=== PATIENT | female | born 1990 | race Caucasian/White ===

== ENCOUNTER → 2017-02-09 | Outpatient (CLI) | payer OTHER ==
[2017-02-09 12:03] LABS: URINE APPEARANCE CLEAR (CLEAR); URINE BILIRUBIN NEG (NEG); URINE COLOR YELLOW; URINE NITRITE NEG (NEG); URINE SPECIFIC GRAVITY 1.016 (1.000-1.030); UROBILINOGEN NEG (NEG)
[2017-02-09 12:04] LABS: MANUAL MICROSCOPIC REQUIRED? NO; REVIEW REQ? NO
== END | disposition home or self-care (01) ==
LOC: C.LABSPEC 11:11
PROVIDERS: ATTEND Obstetrics & Gynecology
DX: Z34.01 Encounter for supervision of normal first pregnancy, first trimester (principal)

== ENCOUNTER → 2017-02-14 | Outpatient (CLI) | payer OTHER ==
[2017-02-14 16:48] LABS: BASO % 0.2 %; BASO ABS # 0.03 K/uL (0-0.2); COMPLETE YES; EOS % 1.3 %; HEMATOCRIT 37.7 % (37-47); IG% 0.2 %; LYMPH % 12.9 %; LYMPH ABS # 1.65 K/uL (1.2-3.4); MEAN CELL VOLUME 85.9 fL (80-100); MEAN CORPUSCULAR HEMOGLOBIN 28.7 pg (25-34); MEAN CORPUSCULAR HGB CONC 33.4 g/dl (32-36); MEAN PLATELET VOLUME 10.8 fL (7.4-10.4); MONO % 6.6 %; NEUT % 78.8 %; PLATELET COUNT 206 K/uL (130-400); RED BLOOD COUNT 4.39 M/uL (4.2-5.4)
[2017-02-16 13:55] LABS: CHLAMYDIA TRACH RNA*** NOT DETECTED (NOT DETECTED); GC (NEIS GONORRHOEAE)RNA** NOT DETECTED (NOT DETECTED)
== END | disposition home or self-care (01) ==
LOC: C.LAB1850 15:43
PROVIDERS: ATTEND Obstetrics & Gynecology
DX: Z34.01 Encounter for supervision of normal first pregnancy, first trimester (principal); E83.31 Familial hypophosphatemia

== ENCOUNTER → 2017-02-14 | Outpatient (CLI) | payer OTHER | END | disposition home or self-care (01) | LOC: C.PAPS 09:54 | PROVIDERS: ATTEND Obstetrics & Gynecology | DX: Z12.4 Encounter for screening for malignant neoplasm of cervix (principal) ==

== ENCOUNTER → 2017-02-23 | Outpatient (CLI) | payer OTHER ==
[2017-02-23 14:37] LABS: ALT/SGPT 27 U/L (12-78); BLOOD UREA NITROGEN 7 mg/dl (7-18); BUN/CREATININE RATIO 14.3 (10-20); CALCIUM 9.7 mg/dl (8.5-10.1); CARBON DIOXIDE 24 mmol/L (21-32); CHLORIDE 105 mmol/L (98-107); GLUCOSE 61 mg/dl (70-99); SODIUM 136 mmol/L (136-145)
[2017-02-23 14:40] LABS: ALB/GLOB RATIO 1.1 (0.9-2); ALKALINE PHOSPHATASE 80 U/L (45-117); AST/SGOT 17 U/L (15-37); PHOSPHORUS 1.8 mg/dl (2.5-4.9)
[2017-02-23 15:05] LABS: CREATININE RANDOM URINE < 13.0 mg/dl
[2017-02-26 16:36] LABS: IONIZED CALCIUM** TC 19950E 5.73 MG/DL (4.8-5.6)
== END | disposition home or self-care (01) ==
LOC: C.LAB1850 13:03
PROVIDERS: ATTEND Pediatrics
DX: E21.2 Other hyperparathyroidism (principal)

== ENCOUNTER → 2017-03-29 | Outpatient (CLI) | payer OTHER ==
[~2017-03-29] MED LIST: CALC0.2510 PO; CHOL2000 PO; KPH250; PRENTAB26 PO
[2017-03-29 18:55] LABS: ALBUMIN 3.4 gm/dl (3.4-5.0); ALT/SGPT 22 U/L (12-78); AST/SGOT 18 U/L (15-37); BLOOD UREA NITROGEN 9 mg/dl (7-18); CALCIUM 9.2 mg/dl (8.5-10.1); CARBON DIOXIDE 23 mmol/L (21-32); GLUCOSE 63 mg/dl (70-99); PHOSPHORUS 1.8 mg/dl (2.5-4.9); SODIUM 135 mmol/L (136-145)
[2017-03-29 19:06] LABS: ALKALINE PHOSPHATASE 69 U/L (45-117); TOTAL PROTEIN 6.9 gm/dl (6.4-8.2)
== END | disposition home or self-care (01) ==
LOC: C.LAB1850 16:11
PROVIDERS: ATTEND Obstetrics & Gynecology
DX: E83.31 Familial hypophosphatemia (principal)

== ENCOUNTER → 2017-04-06 | Outpatient (CLI) | payer OTHER | END | disposition home or self-care (01) | LOC: C.LAB1850 14:07 | PROVIDERS: ATTEND Obstetrics & Gynecology | DX: Z34.02 Encounter for supervision of normal first pregnancy, second trimester (principal); Z3A.00 Weeks of gestation of pregnancy not specified ==

== ENCOUNTER → 2017-04-10 | Outpatient (CLI) | payer OTHER | END | disposition home or self-care (01) | LOC: C.LAB 13:08 | PROVIDERS: ATTEND Obstetrics & Gynecology | DX: E83.31 Familial hypophosphatemia (principal) ==

== ENCOUNTER → 2017-05-18 | Outpatient (CLI) | payer OTHER | END | disposition home or self-care (01) | LOC: C.LABSPEC 11:23 | PROVIDERS: ATTEND Obstetrics & Gynecology | DX: E83.31 Familial hypophosphatemia (principal) ==

== ENCOUNTER → 2017-07-01 | Outpatient (CLI) | payer OTHER | END | disposition home or self-care (01) | LOC: C.LABSPEC 14:18 | PROVIDERS: ATTEND Obstetrics & Gynecology | DX: Z34.03 Encounter for supervision of normal first pregnancy, third trimester (principal) ==

== ENCOUNTER → 2017-07-01 | Outpatient (CLI) | payer OTHER ==
[2017-07-01 14:42] LABS: HEMATOCRIT 38.3 % (37-47); HEMOGLOBIN 12.9 g/dL (12.0-16.0)
== END | disposition home or self-care (01) ==
LOC: C.LAB1850 12:27
PROVIDERS: ATTEND Obstetrics & Gynecology
DX: Z34.03 Encounter for supervision of normal first pregnancy, third trimester (principal)

== ENCOUNTER → 2017-10-25 | Outpatient (CLI) | payer OTHER ==
[2017-10-25 14:52] LABS: ALKALINE PHOSPHATASE 145 U/L (45-117); ALT/SGPT 42 U/L (12-78); AST/SGOT 28 U/L (15-37); BLOOD UREA NITROGEN 11 mg/dl (7-18); CALCIUM 9.3 mg/dl (8.5-10.1); CARBON DIOXIDE 25 mmol/L (21-32); CREATININE 0.79 mg/dl (0.60-1.20); GLUCOSE 74 mg/dl (70-99); PHOSPHORUS 2.3 mg/dl (2.5-4.9); POTASSIUM 4.5 mmol/L (3.5-5.1); SODIUM 139 mmol/L (136-145); TOTAL PROTEIN 7.5 gm/dl (6.4-8.2)
--- NOTE | 2017-11-07 14:28 | CODING QUERY NO DIAGNOSIS ---
: 1990 TREATMENT RENDERED WITHOUT A DIAGNOSIS To promote full compliance with coding requirements relating to patient care, physician participation is requested in all cases of maintenance mechanic uncertainty. Please assist us with providing a diagnosis/symptom for the test(s) below: A diagnosis/symptom was not documented on your Order. A valid diagnosis/symptom is required to bill all insurances. Please remember that we are unable to code a diagnosis of rule out, probable, possible, questionable, or suspected. Tests that require a diagnosis: DOS: 10/25/17 * COMPREHENSIVE METABOLIC PANEL DIAGNOSIS: * PHOSPHORUS DIAGNOSIS: * VITAMIN D, 25-HYDROXY DIAGNOSIS: * PARATHYROID HORMONE INTACT DIAGNOSIS: Provider Signature: Date: Thank you Angelita Arroyo Health Information Management Once completed, please kindly fax back to [phone] For questions please call [phone]
== END | disposition home or self-care (01) ==
LOC: C.LAB1850 13:29
PROVIDERS: ATTEND Pediatrics
DX: E83.31 Familial hypophosphatemia (principal); M90.80 Osteopathy in diseases classified elsewhere, unspecified site

== ENCOUNTER → 2017-10-28 | Outpatient (CLI) | payer OTHER ==
--- NOTE | 2017-11-11 07:53 | CODING QUERY MEDICAL NECESSITY ---
: 1990 SUPPORTING DIAGNOSIS NEEDED A supporting diagnosis is required for the test/procedure performed on this patient in order for us to be reimbursed by the patient's insurance. Please provide a supporting diagnosis for the following test/procedure listed below next to the test name along with your signature. *If there is no additional diagnosis for this patient that would support the following test/procedure please document that below next to the test/procedure. Test(s)/Procedure(s) that require a supporting diagnosis: DOS: 10/28/17 * UA DIAGNOSIS: Provider Signature: Date: Thank you Angelita Arroyo Health Information Management Once completed, please kindly fax back to [phone] For questions please call [phone]
== END | disposition home or self-care (01) ==
LOC: C.LABSPEC 13:09
PROVIDERS: ATTEND Pediatrics
DX: E83.31 Familial hypophosphatemia (principal); M90.80 Osteopathy in diseases classified elsewhere, unspecified site

== ENCOUNTER 2020-05-16 07:57 | Inpatient (IN) ==
--- NOTE | 2020-05-16 09:18 | History & Physical Report ---
Date of Service May 16, 2020 Assessment & Plan (1) Encounter for induction of labor: 29 y/o who presents for scheduled induction at 41wks for term . Routine . Hx of X-linked hypophosphatemia. O pos. Rubella immune. GBS neg. - vitals reviewed - category 1 tracing - 2 borderline elevated BPs (2 hours apart) this admission, normotensive on repeat. 144/82 and 142/80. No RONDON, visual changes, heartburn, nausea/vomiting, or RUQ pain. Will follow clinically. 05/15/20 outpatient urine dip neg for albumin. Platelet result noted. 159. - LR 125/hr - oxytocin 1+1 - patient potentially would like epidural later - patient requesting delayed cord clamping and cord blood genetic testing (home kit) (2) Encounter for screening for COVID-19: - 05/16/20 covid neg Admission and Anticipated Discharge Date Admission Date: May 16, 2020 History of Present Illness Primary Care Provider: Zee Drake MD Bianka Morrissey is a 29 y/o w/ currently at 41w0d as determined by LMP who is here for induction. Uncomplicated . + contractions; + movement; - fluid loss; + bloody show (x 3 days) Had regular appointments with OB. Labs: (09/27/19) Blood type: O pos Antibody screen: neg H.5 (today) Hct: 37.2 (today) WBC: 12.26 (today) Plt: 159 (today) Rubella: immune RPR: nonreactive Gonorrhea: not detected Chlamydia: not detected HIV: neg HbSAg: neg GBS: neg (04/21/20) GTT 1 hour 50 gram load: 93(02/14/20) Other screens: declines CF/SMA declines panorama Allergies Allergy/AdvReac Type Severity Reaction Status Date / Time pollen extracts Allergy Intermediate RESPIRATORY Verified 05/15/20 11:34 No Known Drug Allergies Allergy Verified 05/15/20 11:34 pine nut AdvReac Severe GI SYMPTOMS Verified 05/15/20 11:34 Home Medications Medication Instructions Recorded Confirmed Type prenat.vits,dillan,qta-clef-hyouv 1 tab PO DAILY 09/21/19 05/16/20 History cholecalciferol (vitamin D3) 2,000 units PO DAILY 04/11/20 05/16/20 History Patient History Medical History Hx of varicella Hypophosphatemia Tension headache Surgical History Hx of oral surgery Family History Father Hypertrophic cardiomyopathy Uncle Hypertrophic cardiomyopathy Grandfather Goiter Mother Hypophosphatemia Social History (Updated 09/21/19 @ 15:16 by Leela Mann) Smoking Status: Never smoker Do You Dip or Chew Tobacco: No; Hx Alcohol Use: No Hx Substance Use: No Preferred Language: German Communication Ability: Effective Oncology Consultant Required: No Beliefs That Will Affect Care: None marital status: marital status details: Buzz Morrissey (29) [phone] Current Living Situation: Spouse and Family Current Living Situation Comment: lives with and son, 2 cats, does not change litter current occupational status: employed current occupation: [employer] Other Information That Helps Us Care for You: No Feels Safe at Home: Yes Safety Concerns: Feels Safe At This Time Review of Systems Denies fever, chills, sweats Denies shortness of breath, difficulty breathing, chest pain, palpitations, chest pressure. Denies breast pain. Denies dysuria. Denies headache or changes in vision. Denies nausea/vomiting. Denies numbness, tingling, weakness. Physical Exam Physical Exam: General: Alert, oriented. No acute distress. Cardiac: Regular rate and rhythm, no murmurs/rubs/gallops. Respiratory: Clear to auscultation bilaterally. No wheezes/rales/rhonchi. No increased work of breathing. Symmetrical chest rise. No respiratory distress. Abdomen: Gravid; nontender to palpation. Ext monitor attached. Pelvic: Dilation 1.5cm; Effacement 70%; Station -3. Soft, posterior. EFW [address] Alexis. Nursing product coordinator present. Lower Extremities: No lower extremity edema or swelling. No deep calf pain. Delilah an's negative bilaterally Results & Data ([facility]) Vital Signs (Past 12 Hours) Vital Signs Temp Pulse Resp BP 05/16/20 08:19 36.4 C L 18 02/19/21 08:12 95 H 144/82 H Monitoring External Monitor read at 0950. baseline 130bpm. mod variability. + accels. no decels. Tocodynamometer 1 contraction so far at 0950 Supervising Physician Co-Signing Physician Notes Resident Physician Supervision Note: I was present with Dr. Shine during the history and exam. I discussed the case with the resident and agree with the findings and plan as documented in the note. Any exceptions or clarifications are listed here: IOL Documented By: Venita Alexis DO Resident Activity Tracking Resident Involvement: Resident Care Provided Care Provided: OB Delivery
[2020-05-16] MEDS ORDERED: OXYTOCIN 30 UNITS/500 ML BAG IV PRN ×3 (09:26→20:13)
[2020-05-16] MEDS: LACTATED RINGER'S 1,000 ML IV PRN ×2 (09:48→15:01)
[2020-05-16 09:53] LABS: Hematocrit (blood only) 37.2 % (37-47); Hemoglobin 12.5 g/dL (12.0-16.0); Mean Corpuscular Hemoglobin 29.7 pg (25-34); Mean Corpuscular Hgb Conc 33.6 g/dL (32-36); Mean Corpuscular Volume 88.4 fL (80-100); Mean Platelet Volume 12.8 fL (7.4-10.4); Platelet Count 159 K/uL (130-400); RDW Coefficient of Variation 12.7 % (11.5-14.5); RDW Standard Deviation 40.8 fL (36.4-46.3); Red Blood Count 4.21 M/uL (4.2-5.4); White Blood Count 12.26 K/uL (4.8-10.8)
[2020-05-16] MEDS ORDERED: SODIUM CHLORIDE 0.9% INJ 10 ML VIAL ONE (14:23)
[2020-05-16] MEDS ORDERED: ePHEDrine sulfate 50 MG/ML AMP ONE (14:23)
[2020-05-16] MEDS ORDERED: fentaNYL citrate 100 MCG/2 ML VIAL ONE (14:24)
[2020-05-16] MEDS ORDERED: BUPIVACAINE 0.25% 30 ML VIAL ONE (14:24)
[2020-05-16] MEDS ORDERED: fentaNYL 2MCG/ML ROPIVACAINE 1.25MG/ML 100 ML BAG EPI ONE (14:25)
[2020-05-16] MEDS ORDERED: ePHEDrine sulfate 50 MG/ML AMP IV PRN (14:42)
[2020-05-16] MEDS ORDERED: NALOXONE HCL 0.4 MG/1 ML VIAL/CARP IV PRN (14:42)
[2020-05-16] MEDS ORDERED: fentaNYL 2MCG/ML ROPIVACAINE 1.25MG/ML 100 ML BAG EPI PRN (14:42)
[2020-05-16] MEDS ORDERED: diphenhydrAMINE 50 MG/ML VIAL IV PRN (14:42)
[2020-05-16] MEDS ORDERED: ONDANSETRON INJ 2 MG/ML 2 ML VIAL IV PRN (14:42)
[2020-05-16] MEDS ORDERED: NALOXONE HCL 1 MG in SODIUM CHLORIDE 0.9% 1000ML 1,000 ML IV PRN (14:42)
--- NOTE | 2020-05-16 14:44 | Anesthesiology Consultation ---
Date of Service May 16, 2020 Assessment & Plan (1) Encounter for pre-operative examination: Chart Review Chart Review: Patient NOT seen in Pre Admission Testing and Acceptable Risk for Labor Epidural Consults Requested none History Height/Weight Height: 5 ft Weight: 77.564 kg Allergies Allergy/AdvReac Type Severity Reaction Status Date / Time pollen extracts Allergy Intermediate RESPIRATORY Verified 05/15/20 11:34 No Known Drug Allergies Allergy Verified 05/15/20 11:34 pine nut AdvReac Severe GI SYMPTOMS Verified 05/15/20 11:34 Medications Home Medications Medication Instructions Recorded Confirmed Last Taken prenat.vits,dillan,rgj-mozi-kftqp 1 tab PO DAILY 09/21/19 05/16/20 05/16/20 cholecalciferol (vitamin D3) 2,000 units PO DAILY 04/11/20 05/16/20 05/16/20 Active Medications Generic Name Dose Route Start Last Admin Trade Name Freq PRN Reason Stop Dose Admin Lactated Ringer's 1,000 mls @ 125 mls/hr 05/16/20 09:26 05/16/20 15:01 Lr IV 05/18/20 09:25 999 mls/hr .Q8H PRN Administration L&D Protocol Protocol Oxytocin 30 units in 500 mls @ 7 mls/hr 05/16/20 09:29 05/16/20 13:25 Pitocin IV 05/18/20 09:28 0.42 units/hr .Q24H PRN 7 mls/hr Labor Induction/Augmentation Titration Protocol 0.42 UNITS/HR Past Medical History Medical History Hx of varicella Hypophosphatemia Tension headache Exercise / Class Metabolic Activity II 4-5 Yardwork/Stairs/Walk up hill Past Family History Family History Father Hypertrophic cardiomyopathy Uncle Hypertrophic cardiomyopathy Grandfather Goiter Mother Hypophosphatemia Past Surgical History Surgical History Hx of oral surgery Past Anesthesia History No Hx of Anesthesia Complications and No Family Hx of Anesthesia Complications History of PONV No Hx of PONV and No Hx of Motion Sickness Social History Smoking Status: Never smoker Do You Dip or Chew Tobacco: No Hx Alcohol Use: No Hx Substance Use: No Physical Exam Vital Signs Last Vital Signs Temp 36.3 C L 05/16/20 11:02 Pulse 68 05/16/20 15:01 Resp 20 05/16/20 14:34 BP 153/70 H 05/16/20 15:01 Pulse Ox 98 05/16/20 14:57 Testing Laboratory Results 05/16/20 09:37 05/16/20 14:08 05/16/20 09:52 POC Glucose 97
[2020-05-16 14:45] LABS: Albumin Level 2.8 gm/dl (3.4-5.0); BUN Creatinine Ratio 10.9 (10-20); Calcium 9.5 mg/dl (8.5-10.1); Est GFR (African American) 145.7; Est GFR (Non-African American) 125.7; Potassium 4.3 mmol/L (3.5-5.1)
[2020-05-16 14:48] LABS: Albumin Globulin Ratio 0.8 (0.9-2); Bilirubin,Total 0.3 mg/dl (0.2-1); Globulin 3.7 gm/dl (2.5-4.0); Total Protein 6.5 gm/dl (6.4-8.2)
[2020-05-16] MEDS ORDERED: ACETAMINOPHEN 325 MG TAB PO PRN ×2 (16:10→20:13)
--- NOTE | 2020-05-16 17:17 | Labor Progress Brief Note ---
Date of Service May 16, 2020 Subjective Comfortable with epidural. FHT Cat 1 [place] Q 2 SVE 5-6/80/-2 AROM clear. Assessment & Plan Admission and Anticipated Discharge Date Admission Date: May 16, 2020 Results & Data ([facility]) Vital Signs (Past 12 Hours) Vital Signs Temp Pulse Resp BP Pulse Ox 05/16/20 17:12 62 98 05/16/20 17:07 60 98 05/16/20 17:02 58 L 141/84 H 100 05/16/20 17:00 36.4 C L 20 05/16/20 16:57 66 99 05/16/20 16:52 65 99 05/16/20 16:47 65 136/88 98 05/16/20 16:42 69 97 05/16/20 16:37 70 97 05/16/20 16:34 64 131/82 05/16/20 16:32 76 98 05/16/20 16:27 74 97 05/16/20 16:22 82 96 05/16/20 16:17 77 124/77 96 05/16/20 16:12 72 95 05/16/20 16:07 72 97 05/16/20 16:03 67 18 136/81 05/16/20 16:02 69 96 05/16/20 15:57 70 95 05/16/20 15:55 73 94 05/16/20 15:52 65 96 05/16/20 15:47 72 20 132/77 97 05/16/20 15:45 64 134/76 05/16/20 15:43 68 133/70 05/16/20 15:42 69 95 05/16/20 15:41 70 131/70 05/16/20 15:39 75 135/72 05/16/20 15:37 71 136/73 96 05/16/20 15:35 77 133/92 05/16/20 15:33 117 H 18 133/81 05/16/20 15:32 74 95 05/16/20 15:31 74 129/70 05/16/20 15:29 71 133/72 05/16/20 15:27 71 20 138/75 95 05/16/20 15:25 71 140/76 05/16/20 15:23 71 20 138/75 05/16/20 15:22 72 96 05/16/20 15:21 66 20 141/73 H 05/16/20 15:19 70 129/74 05/16/20 15:17 71 20 126/70 96 05/16/20 15:15 65 20 135/76 05/16/20 15:13 69 20 133/76 05/16/20 15:12 75 97 05/16/20 15:11 36.6 C 69 20 138/75 05/16/20 15:09 70 20 137/74 05/16/20 15:07 70 20 127/74 97 05/16/20 15:05 70 130/62 05/16/20 15:03 71 158/89 H 05/16/20 15:02 74 97 05/16/20 15:01 68 20 153/70 H 05/16/20 14:59 67 169/77 H 05/16/20 14:57 68 20 156/80 H 98 05/16/20 14:52 67 98 05/16/20 14:51 70 173/87 H 05/16/20 14:47 74 99 05/16/20 14:42 68 98 05/16/20 14:37 65 98 05/16/20 14:34 70 20 152/87 H 05/16/20 14:32 67 99 05/16/20 13:23 71 20 141/85 H 05/16/20 12:19 74 20 128/74 05/16/20 11:34 78 18 136/85 05/16/20 11:02 36.3 C L 20 05/16/20 10:33 83 18 142/80 H 05/16/20 09:27 72 18 136/85 05/16/20 08:19 36.4 C L 18 05/16/20 08:12 95 H 144/82 H Coding Level of Care Code None
[2020-05-16] MEDS ORDERED: NURSING L&D Epidural Breakthrough Pain Update ONE (18:22)
--- NOTE | 2020-05-16 20:04 | Anesthesia Procedure Note ---
Date of Service May 16, 2020 Anesthesia Post Epidural Note Vital Signs Vital Signs: Temp Pulse Resp BP Pulse Ox 36.4 C L 74 20 136/83 98 05/16/20 17:00 05/16/20 19:57 05/16/20 18:30 05/16/20 19:47 05/16/20 19:57 Pain Intensity Lower Abdomen: Pain Intensity: 0 Notes Mental Status: alert / awake / arousable and participated in evaluation Patient Amnestic to Procedure: No Nausea / Vomiting: adequately controlled Pain: adequately controlled Airway Patency, RR, SpO2: stable & adequate BP & HR: stable & adequate Hydration State: stable & adequate Neuraxial Anesthesia: was administered and sensory block is resolving Anesthetic Complications: no major complications apparent and Pt Satisfied with anesthetic care Epidural: Removed without complications and With tip intact
[2020-05-16] MEDS ORDERED: DIPHTHERIA/TETANUS/PERTUSSIS 0.5 ML SYR/VIAL IM ONE (20:13)
[2020-05-16] MEDS ORDERED: SUPERCREAM 0.870% 15 GM JAR EXT PRN (20:13)
[2020-05-16] MEDS ORDERED: BENZOCAINE 20% AER SPR 82.5 GM CAN EXT PRN (20:13)
[2020-05-16] MEDS ORDERED: HYDROCORTISONE ACETATE 25 MG SUPP PR PRN (20:13)
[2020-05-16] MEDS ORDERED: bisacodyL 10 MG SUPP PR PRN (20:13)
--- NOTE | 2020-05-16 20:20 | Delivery Summary ---
Vaginal Delivery Summary Date of Service May 16, 2020 Vaginal Delivery Summary Vaginal Delivery Summary: Pre-delivery diagnoses: 29yo @ 41 0/7, X-linked hypophosphatemia Post-delivery diagnoses: same Procedure: spontaneous vaginal delivery, repair of 1st degree perineal laceration Surgeon: Venita Alexis DO Complications: none Findings: Viable female . Apgars: 7/9. Weight pending, please see nursery records. Estimated blood loss: 300ml Description of delivery: The patient progressed to complete with epidural anesthesia. She then began to push. She spontaneously vaginally delivered a viable from the cephalic presentation. The head delivered in PAPI position. Nuchal cord around body, too tight to reduce. The anterior shoulder delivered, followed by the posterior shoulder, followed by the body. The baby was placed on mother's abdomen and a spontaneous cry was heard. Delayed cord clamping was employed, and the cord was doubly clamped and cut. A segment was retained for cord gases. Cord blood was obtained for multiple purposes - routine cord blood, genetics per patient request, and COVID antibody testing per patient request. The placenta was delivered spontaneously intact with a 3- vessel cord. The uterus and vagina were swept of clots and debris. IV pitocin was given. The uterus became firm. The cervix, vagina, and perineum were inspected and a first degree perineal laceration was noted. Repaired in standard fashion with 3-0 vicryl. Excellent hemostasis was observed. The mother and baby are recovering in stable and good condition in the room. Sponge, needle and instrument counts were correct x 2. Venita Alexis DO [facility] Vaginal Delivery Charge Vaginal Delivery Codes: 24856 global code for the antepartum, delivery, and post- Delivery Type Details:
[2020-05-16 20:57] LABS: CoV2 Total Antibody Positive (Negative)
[2020-05-16] MEDS: IBUPROFEN 600 MG TAB PO PRN (21:09)
[2020-05-16] MEDS: DOCUSATE SODIUM 100 MG CAP PO SCH (21:09)
[2020-05-16 22:47] LABS: Base Excess Cord Arterial Bld -5.3 mEq/L (-9-1.8); Base Excess Cord Venous Blood -4.5 mEq/L (-7.7-1.9); CO2 Cord Arterial Blood 37 mmHg (39.1-73.5); Cord Venous Blood HCO3 19 mmol/L (18.4-26.8); Cord Venous Blood PCO2 32 mmHg (30.4-57.2); Cord Venous Blood PO2 46 mmHg (14.1-43.3); Cord Venous Blood pH 7.39 (7.20-7.44); HCO3 Cord Arterial Blood 20 mmol/L (19.7-28.5); PO2 Cord Arterial Blood 36 mmHg (4.1-31.7); pH Cord Arterial Blood 7.34 (7.1-7.38)
[2020-05-17] MEDS: IBUPROFEN 600 MG TAB PO PRN ×5 (03:38→23:53)
--- NOTE | 2020-05-17 05:17 | Obstetrical Progress Note ---
Date of Service <Abhishek Shine MD - Last Filed: 05/17/20 06:59> May 17, 2020 Assessment & Plan <Abhishek Shine MD - Last Filed: 05/17/20 06:59> (1) state: 29 y/o who is s/p at 41 wks and is PPD1. Routine . Hx of X-linked hypophosphatemia. O pos. Rubella immune. GBS neg. - f/u on lochia. otherwise meeting PP milestones - pain controlled - without issues - some elevated BP readings 173/78 x1. otherwise 140s/70s-80s. asymptomatic, continue routine monitoring. During admission, plts 159, Cr normal, neg protein on urine dip. Normal AST/ALT. - O2 sat 86 x1. asymptomatic. will follow clinically and O2 sats - continue routine care - tentative dispo tomorrow Subjective <Abhishek Shine MD - Last Filed: 05/17/20 06:59> Ambulation: ambulating normally Voiding: no voiding problems Passing Gas:: Yes Diet Tolerance:: regular diet Lochia:: Large (per patient 2 pads soaked) Feeding Type:: breast feeding (no issues) Current Pain Level(1-10): 1 (goes up to 6-7 during ) Patient is unsure if prefers home today vs tomorrow and has question about insurance coverage. No other complaints. Denies any headache, vision changes, or RUQ abd pain both currently and overnight. Did not have any symptoms during the elevated BP reading last night. No respiratory complaints. Review of Systems Denies fever, chills, sweats Denies shortness of breath, chest pain, palpitations. Denies breast pain. Denies dysuria. Denies headache or changes in vision. Denies nausea/vomiting. Denies numbness, tingling, weakness. Physical Exam <Abhishek Shine MD - Last Filed: 05/17/20 06:59> General: Alert, oriented. No acute distress. Cardiac: Regular rate and rhythm, no murmurs/rubs/gallops. Respiratory: Clear to auscultation bilaterally, no wheezes/rales/rhonchi. No respiratory distress. Abdomen: , soft, nontender. Uterus: Uterine fundus firm, palpable 2cm below umbilicus. Lower Extremities: 1+ LE edema.. No deep calf pain. Sagar's negative bilaterally. Results & Data ([facility]) <Abhishek Shine MD - Last Filed: 05/17/20 06:59> Vital Signs (Past 12 Hours) Vital Signs Temp Pulse Pulse Resp BP BP Pulse Ox 05/17/20 00:01 37.3 C 73 18 132/81 05/16/20 21:50 36.6 C 81 146/74 H 05/16/20 21:48 89 173/78 H 05/16/20 21:47 18 05/16/20 21:33 81 143/84 H 05/16/20 21:17 78 16 133/73 05/16/20 21:02 80 141/88 H 05/16/20 20:47 86 16 150/93 H 05/16/20 20:32 80 18 147/91 H 05/16/20 20:17 68 18 142/85 H 05/16/20 20:07 83 86 L 05/16/20 20:02 74 16 134/85 97 05/16/20 19:57 74 98 05/16/20 19:52 72 97 05/16/20 19:47 36.8 C 70 18 136/83 99 05/16/20 19:42 64 152/86 H 97 05/16/20 19:37 75 93 05/16/20 19:32 70 98 05/16/20 19:27 77 97 05/16/20 19:22 73 96 05/16/20 19:17 115 H 97 05/16/20 19:16 98 H 90 05/16/20 19:12 82 98 05/16/20 19:10 36.8 C 20 05/16/20 19:07 65 100 05/16/20 19:03 69 170/95 H 05/16/20 19:02 72 99 05/16/20 18:57 64 99 05/16/20 18:52 68 97 05/16/20 18:47 63 159/94 H 98 05/16/20 18:42 62 98 05/16/20 18:37 62 97 05/16/20 18:33 64 154/88 H 05/16/20 18:32 62 97 05/16/20 18:30 20 05/16/20 18:27 66 96 05/16/20 18:22 64 97 05/16/20 18:18 67 20 157/90 H 05/16/20 18:17 68 98 05/16/20 18:12 78 97 05/16/20 18:07 58 L 98 05/16/20 18:03 58 L 20 174/81 H 05/16/20 18:02 63 100 05/16/20 17:57 66 99 05/16/20 17:52 64 99 05/16/20 17:49 62 20 140/80 05/16/20 17:47 67 98 05/16/20 17:42 68 97 05/16/20 17:37 61 97 05/16/20 17:33 71 147/91 H 05/16/20 17:32 71 98 05/16/20 17:30 18 05/16/20 17:27 65 98 05/16/20 17:22 68 98 05/16/20 17:18 62 20 134/80 05/16/20 17:17 62 98 Medications Administered <Venita Alexis DO - Last Filed: 05/17/20 07:52> Co-Signing Physician Notes Resident Physician Supervision Note: I was present with Dr. Shine during the history and exam. I discussed the case with the resident and agree with the findings and plan as documented in the note. Any exceptions or clarifications are listed here: PPD#1 doing well. Plans for DC home tomorrow. Documented By: Venita Alexis DO
[2020-05-17 06:10] LABS: Hematocrit (blood only) 32.6 % (37-47); Hemoglobin 10.9 g/dL (12.0-16.0); Mean Corpuscular Hemoglobin 29.6 pg (25-34); Mean Corpuscular Hgb Conc 33.4 g/dL (32-36); Mean Corpuscular Volume 88.6 fL (80-100); Mean Platelet Volume 12.8 fL (7.4-10.4); Platelet Count 152 K/uL (130-400); RDW Coefficient of Variation 12.7 % (11.5-14.5); RDW Standard Deviation 40.5 fL (36.4-46.3); Red Blood Count 3.68 M/uL (4.2-5.4)
[2020-05-17] MEDS: PRENATAL VITAMIN 1 TAB PO SCH (08:05)
[2020-05-17] MEDS: DOCUSATE SODIUM 100 MG CAP PO SCH ×2 (08:05→21:18)
[2020-05-17] MEDS ORDERED: bisacodyL 5 MG TABEC PO SCH (20:00)
[2020-05-18 06:35] LABS: Hematocrit (blood only) 30.1 % (37-47)
--- NOTE | 2020-05-18 07:22 | Obstetrical Progress Note ---
Date of Service May 18, 2020 Assessment & Plan (1) state: PPD 2 MEETS CRITERIA, HOME Subjective Ambulation: ambulating normally Voiding: no voiding problems Diet Tolerance:: regular diet Lochia:: Small Feeding Type:: breast feeding Current Pain Level(1-10): 1 Physical Exam Constitutional WD/WN, vitals as above (ext neg) Results & Data ([facility]) Vital Signs (Past 12 Hours) Vital Signs Temp Pulse Resp BP Pulse Ox 05/17/20 23:45 98.2 F 73 16 134/78 97 05/17/20 19:50 98.4 F 82 18 133/86 98
[2020-05-18] MEDS: IBUPROFEN 600 MG TAB PO PRN (07:40)
[2020-05-18] MEDS: DOCUSATE SODIUM 100 MG CAP PO SCH (07:41)
[2020-05-18] MEDS: PRENATAL VITAMIN 1 TAB PO SCH (07:41)
== END 2020-05-18 10:40 | disposition home or self-care (01) | DRG 807 ==
LOC: 4S1 07:57 → 4S2 23:14